=== PATIENT | female | born 1995 | race Caucasian/White ===

== ENCOUNTER 2018-03-08 00:58 | Emergency (ER) | payer OTHER ==
[~2018-03-08] VITALS: Ht 172.7 cm; Wt 145.4 kg
[2018-03-08] MEDS ORDERED: ACETAMINOPHEN TAB 650MG DOSE (2X325MG) PO ONE (01:30)
[2018-03-08 02:01] LABS: INFLUENZA A AMPLIFICATION NEGATIVE (NEGATIVE); INFLUENZA B AMPLIFICATION NEGATIVE (NEGATIVE)
[2018-03-08 02:17] VITALS: BP 133/81
[2018-03-08] MEDS ORDERED: LORazepam 2 MG TAB PO ONE (02:30)
[2018-03-08] MEDS ORDERED: POTASSIUM CHL PWD 20 MEQ PACKET PO ONE (02:30)
== END 2018-03-08 02:17 | disposition home or self-care (01) ==
LOC: M ED 00:58
DX: R03.0 Elevated blood-pressure reading, without diagnosis of hypertension (principal); B34.9 Viral infection, unspecified; Z91.89 Other specified personal risk factors, not elsewhere classified

== ENCOUNTER 2018-11-25 19:37 | Emergency (ER) | payer OTHER ==
[~2018-11-25] VITALS: Ht 172.7 cm; Wt 145.4 kg
[2018-11-25 19:38] VITALS: BP 145/71
[2018-11-25] MEDS ORDERED: ESCI10TA2 (19:48)
[2018-11-25] MEDS ORDERED: ESTA0.25 (19:48)
[2018-11-25] MEDS ORDERED: ROBA750T4 PO (21:22)
== END 2018-11-25 21:34 | disposition home or self-care (01) ==
LOC: M ED 19:37
DX: M54.5 Low back pain (principal); M54.2 Cervicalgia; I10 Essential (primary) hypertension; F41.9 Anxiety disorder, unspecified; F32.9 Major depressive disorder, single episode, unspecified; Z88.8 Allergy status to other drugs, medicaments and biological substances